=== PATIENT | female | born 1935 | race Caucasian/White ===

== ENCOUNTER 2016-06-17 13:17 | Outpatient (CLI) | payer MEDICARE, OTHER | END 2016-06-17 13:18 | disposition home or self-care (01) | DX: J11.1 Influenza due to unidentified influenza virus with other respiratory manifestations (principal) ==

== ENCOUNTER 2016-08-02 08:00 | Outpatient (CLI) | payer MEDICARE, OTHER | END 2016-08-02 23:59 | DX: Z13.89 Encounter for screening for other disorder (principal) ==

== ENCOUNTER 2016-08-03 16:30 | Outpatient (CLI) | payer MEDICARE, OTHER | END 2016-08-03 16:31 | DX: R41.0 Disorientation, unspecified (principal) ==

== ENCOUNTER 2016-11-15 17:30 | Outpatient (CLI) | payer MEDICARE, OTHER ==
--- NOTE | 2016-11-16 09:56 | CONSULTATION NOTE ---
DATE OF CONSULTATION: 11/16/2016 00:00:00 REQUESTING PROVIDER: Ankit Gonzalez MD. TIME OF VISIT: 10:45 to 11:45 a.m. TOPIC: Initial palliative care consult. Thank you, Dr. Gonzalez, for asking the palliative care consult service to be involved in this patient's care. I am asked to provide support regarding disease transitions and hospice appropriateness. The patient is seen in her [facility] setting, which is [facility]. She has been a resident there [facility]. EXAM LIMITATIONS: The patient is with dementia, is unable to participate in the history. Most of the information is taken from her medical records, nursing staff and daughter, Giselle. BRIEF HISTORY OF PRESENT ILLNESS: This is an 80-year-old woman who actually has been fairly healthy m ost of her life. 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 She [facility] [place] built by her grandfather. She probably was having cognitive decline over se veral years, but had been unable to hide it, but it came to a head back in 08/2015. She was seen by a neurologist, was thought to be her dementia was attributed to multiple mini strokes and has had incr easing functional and cognitive decline over this last year, but more specifically over the last cris ral months. This has been exacerbated by recurrent urinary tract infections that do recur probably on a monthly basis. Most recently she has been treated empirically. She presents with increased confusi on with these, more lethargy and some agitation. She was most recently treated a few weeks ago with C ipro and has not returned to her baseline. I find her quite pleasant. She is able to converse, as far as respond to questions, though, her quest ions are somewhat nonsensical. She does have some drifting delusions in there, putting together going out to lunch, some elaborate descriptions of different people that she has been participating or hav ing conversations with and different trips she has made. In discussing with the daughter, there is so me baseline as far as historical context for that, but certainly not based on reality at this point i n time. She is pleasant, making eye contact, attempting to have a conversation and tries to answer my questions. When asked how she is doing, she says that "I am doing pretty good." She reports she live s just around the corner. Does have some perspective that she is forgetful, but really unable to reca ll any information in the context of history. The patient was originally cared for at [place]. Th ey were unable to meet her needs at that point in time she was also having issues with venous stasis ulcers and cellulitis. This precipitated her admission to [facility]. The daughter's perception is she h as actually settled in there very well. They are very pleased with the staff. The staff are obviously quite fond of her and she does appear to be safely getting her needs met. SYMPTOM BURDEN: She does not present with any distress or discomfort. She has noted a history of back pain, though denies this currently. PAST MEDICAL HISTORY: Includes unspecified dementia, essential primary hypertension, unspecified atri al fibrillation, venous insufficiency, chronic peripheral osteoarthritis and low back pain. MEDICATION ALLERGIES: 1. AMOXICILLIN. 2. CLAVULANIC ACID. 3. LISINOPRIL. 4. POTASSIUM. 5. PROCAINE. CURRENT MEDICATION LIST: INCLUDES. 1. Acetaminophen 650 mg q.6h hours as needed for pain. 2. D-Mannose powder 1 scoop by mouth 3 times a day for prophylactic UTI prevention. 3. House bowel program. 4. Lorazepam 0.5 mg tabs 1/2 tab every 6 hours as needed for agitation. CODE STATUS: THE PATIENT IS CURRENTLY A DO NOT RESUSCITATION AND LIMITED INTERVENTIONS. THIS WAS SIGN ED BY GISELLE GARZON, HER DPOA ON 05/09/[address] ANKTI GONZALEZ, HER PCP. 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 She has lived and participated in this community. She is well loved and liked. MARITAL STATUS: She is . Use of alcohol, rarely in the past. No history of tobacco. FAMILY HISTORY: Includes her father at 64 of cancer. Mother at 64 of a car accident. A sibl ing at 83 of pneumonia and she has 2 children with good health. She does think the sibling did h ave some dementia as well. PERFORMANCE STATUS: This is continued decline, the patient does need quite a bit of cueing. She can j ust a shuffle a few steps. She is maximum assist from sitting to standing, poor bed mobility. She is still currently feeding herself and no choking. They recently got a wheelchair to help with drea khan as she lists to the left. REVIEW OF SYSTEMS: This is a somewhat limited, supplemented by staff. ENT: She does have some slight hearing loss. CARDIOVASCULAR: The patient denies chest pain. RESPIRATORY: No observation of respiratory distress or shortness of breath. GASTROINTESTINAL: Staff reports she is going on a regular basis. Her appetite has returned back to ba seline. GENITOURINARY: She is mostly incontinent of urine. MUSCULOSKELETAL: She is quite stiff and difficult to transfer, has been declining functionally over t he last several weeks. INTEGUMENTARY: No changes. Complains of burning in vaginal area "down there". NEUROLOGIC: Has fluctuating speech patterns and ability to interact with staff. She has had increased weakness. PSYCHIATRIC: No signs or symptoms of depression per staff, the patient herself reports sometimes she is depressed, and that she has sometimes "terrible days" though she is unable to define what that is. Staff perception is she does have intermittent delusions, and unclear if she is having hallucination s. ENDOCRINE: No history of diabetes or thyroid problems. HEMATOLOGIC/IMMUNOLOGIC: Her labs were within normal limits, though last checked in July. Only abnor malities GFR was 69. Glucose was good. She has had intermittent bladder infections as best we know of , last treated a couple weeks ago. PHYSICAL EXAMINATION: GENERAL APPEARANCE: She is bright. Smiles frequently, making eye contact, attempting to engage in the conversation. EYES: Normal on inspection. ENT: Mucous membranes are moist. NECK: Trachea midline, no JVD. RESPIRATORY: Breath sounds are clear. CARDIOVASCULAR: Her temperature is 98.2, pulse 64, slightly irregular, blood pressure 116/72, O2 satu ration 95% on room air. ABDOMEN: Soft. Bowel tones normal, no bladder distention noted. : The patient had complained of having " a pain in the butt" and itching so did want to do a vagina l exam, concerned about candidiasis after her Cipro. The patient does report it is hot and burning, i t is somewhat red and inflamed. There is a small amount of white discharge, no large amount of vagina l discharge. No skin breakdown on her skin. Her coccyx is clear. No signs or symptoms of pressure are a. EXTREMITIES: She does have denuded shiny, red venous stasis bilaterally with just slight pedal edema. Feet are cool to touch. No signs or symptoms of exacerbation or infection. PALLIATIVE CARE DISCUSSION/WHO IS PRESENT: Myself, the patient and nurse practitioner, Deidra Francois. Th e patient is somewhat difficult to engage as far as what she worries about, it was mostly "the pain i n the butt." She reports sometimes feeling sad, denies being unhappy. Has shared a few sentences I co uld not quite make sense out of. Does not appear in any kind of distress. A long conversation both prior and after with daughter, Giselle. She does perceive her mother is windin g down, though the patient is quite content and happy, does not perceive this as quality of life that her mother would have appreciated. That she has never been sick a day in her life. Their goal as a f amily is just to keep her comfortable. If the patient would have recurrent UTI, the decision has been made with the primary care physician and this is revisited and reenforced as far as what she wants f or mom is no further antibiotic intervention. Just focus on keeping her comfortable and to let her go when her time comes. We did discuss the role of comfort measures in this case as far as treating her agitation or if she has pain or distress, often using medications such as morphine to make sure she does not suffer. Given the patient's current level of functioning and her dementia, would only be sta ged at a FAST 6D. We did discuss transitioning at the point that she does get an infection, at that p oint in time with the focus on comfort measures, nontreated infection and multiple comorbidities, we could transition her to the hospice team. She is aware though that she still can be supported with cu rrently the palliative care team and will have the palliative care sumatra opener, as well as a volunteer a ssigned to help improve her quality of life. These were satisfactory as supporting the patient in her current setting. IMPRESSION: This is an 80-year-old woman with a fairly rapid decline over this last year with both fu nctional and cognitive changes. The family's goals are to focus on comfort, improving quality of life and with any perceived life ending event or infection to ALLOW NATURAL AND FOCUS ON COMFORT ME ASURES ONLY. RECOMMENDATIONS/COUNSELING DONE: 1. Vaginal candidiasis: Though this is mild, it does appear to be a source of discomfort for her. Jus t ordered some Monistat external cream to apply b.i.d. for 7 days to see if this will improve. 2. Recurrent urinary tract infections. Goals have been established, to focus on comfort only. She yusuf s have lorazepam for agitation and behavioral disturbances, would recommend adding to the toolbox mor phine 20 per mL 0.25 mL q.4h. hours p.r.n. signs or symptoms of discomfort to allow for any signs of distress to be able to be addressed by staff. At the time the patient was diagnosed with recurrent UT I, the goal would be to transition to hospice. 3. Dementia with behavioral disturbances. Presents as a FAST 6D. Currently, the patient was cooperati ve, though does have some intermittent agitation, delusions and some uncooperativeness. This has not needed to be met with the threshold of medications, though it is available. She does spent quite a bi t of time in her room. Did talk to Giselle as far as how we may help as far as support. Will support he r with medical palliative care sumatra opener with visits, as well as an assigned volunteer. She does like to do crafts and activities. Daughter is coming in November to provide support as well. 4. Advanced care planning. The patient does have a POLST in place. When daughter comes in November we can transition this to comfort measures and more clear on the goals we are planning to meet, when she co mes to visit her to provide more clarity as far as direction to staff. Currently, though, it is the u nderstanding that she would not be transferred to the hospital, focus would be on comfort and transit ion to hospice. This is in conjunction with the primary care goals of care for the patient as well. TIME SPENT: 60 minutes with greater than 50% of this done in counseling with an examination with staf f to get a baseline, clarifying goals and current impressions of the patient's status. The patient's greatest risk is the recurrent UTIs. Certainly is at risk for a sequela of a fall if she were to fall out of the wheelchair and sustain injury. She is currently off her Xarelto and so underlying possibl e risk for stroke. She though has not had any weight loss, continues to eat and drink without difficu lty, is still able to engage in her environment. This is a very uncertain situation as far as expecte d decline. JOB #: [id number] EXT JOB #:[id number]
== END 2016-11-15 17:31 | disposition home or self-care (01) ==
LOC: PC 17:30
PROVIDERS: ATTEND Nurse Practitioner Adult Health
DX: Z51.5 Encounter for palliative care (principal); B37.3 Candidiasis of vulva and vagina; Z87.440 Personal history of urinary (tract) infections; F03.91 Unspecified dementia, unspecified severity, with behavioral disturbance; Z66 Do not resuscitate
CPT/HCPCS: 99306

== ENCOUNTER 2016-12-15 13:10 | Outpatient (CLI) | payer MEDICARE, OTHER ==
--- NOTE | 2016-12-15 16:46 | PROVIDER PROGRESS NOTE ---
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 She has been healthy much of her life but started a gradual cognitive decline over several years. Since about August 2015 her cognitive decline became more pronounced, and she also has a history of recurrent urinary tract infections. The last one was treated in October 2016 with Cipro. She is pleasantly confused, able to express herself articulately at times and to converse fairly normally, but will consistently veer into nonsensical answers and drifting delusions. [facility] nursing reports that she is pleasant and stable behaviorally with the exception of getting upset whenever she is transferred by Leonard, a requirement due to her weight. I spoke at length with her daughter, Sofia, who is currently visiting here from [place]. They had a birthday green party at the [facility] last Monday, and the patient did very well, up until about 1:30 pm. Her daughter notices a pattern that she gets tired and more confused around that time every day. The patient said she feels her life is good here; she is happier than she was at [place] and thinks the caretakers are taking very good care of her. Sofia, the daughter, is also very pleased with the care her mother receives at [facility]. The patient's only complaint is that she can still feel pain on the back of her thighs. Nursing reports she has reddened areas in the skin folds of the groin, and the patient gets relief from a barrier cream when it bothers her. She says she sleeps well, and also has a good appetite, maybe "too good." Social History - Living Situation Living arrangement: [facility]: She was born and raised in [place] and still has a significant network of friends and family nearby. 3 "buddies" visit her regularly at [facility]. Her daughter Sofia (DPOA) lives in [place], and Jayna, the other daughter, lives in [place]. Medications/Allergies - Medications Home Medications: Ambulatory Orders Medication Instructions Recorded Confirmed Acetaminophen [Tylenol] 650 mg PO Q6H PRN 12/15/16 12/15/16 Bisacodyl Supp [Dulcolax Supp] 1 supp HI DAILY PRN MDD if no BM 12/15/16 after 2 days D-Mannose MDD 1 scoop 3 times/day 12/15/16 Lorazepam [Lorazepam] 1 tab PO Q6HR PRN 12/15/16 12/15/16 Magnesium Hydroxide [Milk of 30 ml PO DAILY PRN MDD Give if no 12/15/16 12/15/16 Magnesia] BM after 2 days Senna [Senokot] 1 - 2 tab PO DAILY PRN MDD If no 12/15/16 12/15/16 BM after 2 days - Allergies Allergies/Adverse Reactions: Allergies Allergy/AdvReac Type Severity Reaction Status Date / Time amoxicillin [Amoxicillin] Allergy Unknown Verified 03/31/16 19:29 clavulanic acid Allergy Unknown Verified 03/31/16 19:29 lisinopril Allergy Unknown Verified 03/31/16 19:29 potassium Allergy Unknown Verified 03/31/16 19:29 procaine [Procaine] Allergy Unknown Verified 03/31/16 19:29 Review of Systems - Constitutional Constitutional: denies: Fatigue, Poor appetite - Cardiovascular Cariovascular: denies: Chest pain - Respiratory Respiratory: denies: Cough, SOB at rest - Gastrointestinal Gastrointestinal: reports: Constipation (occasional). denies: Abdominal pain, Change in bowel habits, Nausea - Genitourinary Genitourinary: denies: Dysuria, Urgency - Musculoskeletal Musculoskeletal: denies: Muscle pain, Back pain - Integumentary Integumentary: reports: Rash (groin) - Psychiatric Psychiatric: denies: Depression, Anxiety - Hematologic/Lymphatic Hematologic/Lymphatic: reports: Recurrent infections (UTIs) Physical Examination - Vital Signs Temperature: 97.1 C Pulse Rate: 70 O2 Saturation: 96 Blood Pressure: 115/60 - Physical Exam General Appearance: positive: No acute distress, Alert Eyes Bilateral: positive: EOMI, Conjunctivae nml, No scleral icterus ENT: negative: No signs of dehydration, Dry mucous membranes Neck: positive: Trachea midline Respiratory: positive: Chest non-tender, No respiratory distress, Other (Breath sounds diminished, likely due to slumping forward with kyphosis) Abdomen: positive: Non-tender, No organomegaly, Nml bowel sounds, No distention Skin: positive: No symptoms Extremities: positive: Nml appearance, Pedal edema (mild) Neurologic/Psychiatric: positive: Motor nml, Other (some drifting delusions and tangential responses) Comments/Other: Stable weight, around ~175 lbs since Jun 2016. Most recent weight is 176.7 lbs on 12/05/16 Palliative Care - POLST Patient has POLST: Yes POLST Status: DNR, Limited Interventions (Use antibiotics if life can be prolonged) Pain: Pain improved (Vaginal itch improved, but still complains of pain in posterior thighs) Drowsiness: None Nausea: None Anxiety: Mild (1-3) (related to Leonard lifting) Dyspnea: None Anorexia: None Insomnia: Sleeps well Constipation: Comment (Occasionally. Follow facility bowel protocol.) Feelings of wellbeing/Perceived Quality of Life: Improved (Is satisfied living at [facility]) Performance Status: 1. Previous level of function prior to this episode [Decline over past year, accelerated over past several months]. 2. Current level of functioning [Stable since the October Palliative Care visit]. 3. Palliative Care Performance Status [50%]. - Palliative Care Discussion: 1. Surrogate decision maker [Sofia Snell, daughter in [place]. [phone] mobile]. 2. Patient/Family understanding of the illness [Daughter understands that her mother's dementia is progressing and her functionality is decreasing.]. 3. Most important goals [Comfort and quality of life. The family had a green party last week to celebrate her birthday with numerous family and long time friends, and they want to continue to have her involved in as many activities and family gatherings as possible]. 4. Patient/Family concerns [That her mother enjoys her life as much as possible , that she continues remaind connected to family and friends. She would also like to increase her social contacts so that she is not lonely or bored. She likes the idea of a visiting volunteer, and [employer] visitations too.] 5. Family conference [Spoke with DPOA daughter Sofia on phone before and after visiting the patient. Sofia is on [facility] this week, and visits her mother reqularly. Her sister, Jayna, lives in [place]. The focus of care continues to be focused on comfort and quality of life, but there is ambivalence about antibiotics usage, not wanting to treat recurrent UTIs but wanting to treat "more serious illness." We will continue to revisit this with the DPOA as need arises and the situation dictates. Impression and Recommendations - Palliative Care Impression: This is an 81 year-old woman who has declined over the past year both functionally and cognitively. She has been stable over the last month and she is happy in her current living situation and likes the care she receives at [facility]. Recommendations/Counseling Done: 1. Groin rash: Start Nystatin powder BID until cleared and then as needed. Continue barrier cream as needed. 2. Recurrent UTIs: No infection at present. 3. Dementia with behavioral disturbances: Presents as a FAST 6D. Agitation around use of Leonard lift. Sofia, daughter is aware of this. She has has a lot of family/friend activities in the past week and is seeing an increase in friends visiting. We will support with [employer] visits and volunteer visits after December 27. 4. Advanced care planning: Will continue to revisit goals with decline and monitor for criteria for transitioning to hospice. Time Spent: 30 minutes with greater than 50% done in counseling and coordination of care with staff and follow up with daughter and providing anticipatory guidance.
== END 2016-12-15 13:11 | disposition home or self-care (01) ==
LOC: PC 13:10
PROVIDERS: ATTEND Nurse Practitioner
DX: Z51.5 Encounter for palliative care (principal); R21 Rash and other nonspecific skin eruption; N39.0 Urinary tract infection, site not specified; F03.91 Unspecified dementia, unspecified severity, with behavioral disturbance; M79.652 Pain in left thigh; M79.651 Pain in right thigh; K59.00 Constipation, unspecified; Z66 Do not resuscitate
CPT/HCPCS: 99309

== ENCOUNTER 2017-03-02 10:30 | Outpatient (CLI) | payer MEDICARE, OTHER ==
--- NOTE | 2017-03-02 15:39 | CONSULTATION NOTE ---
Palliative Care Follow Up - Referral Referring Provider: Dr Gonzalez Time of Visit: 10:30 Referral setting: [facility] ([facility]) - Information Sources Records reviewed: RN notes reviewed, Previous records reviewed History/Review of Systems obtained from: Patient, Family, Nursing Exam limitations: Clinical condition (advanced dementia, delusions) - History of Present Illness Update Brief HPI Update: This is a pleasantly confused 81-year-old woman with dementia who has had a gradual cognitive decline for the past several years, and a more precipitous decline cognitively and functionally since August 2015. She has a history of recurrent UTIs; the most recent infection was in October 2016 and was treated with ciprofloxacin. Today her daughter Jayna is with her, and will be attending a family conference at [facility] following my visit. Her mother is pleasantly confused during the assessment, with delusional thinking that today is centered on a dog she knows from her past. I had a follow up telephone call with the daughter, and learned that after this visit, her mother became agitated and upset once her daughter and I had left the room. Once the daughter returned to the patient's room, it took the daughter awhile to calm the patient back down. Apparently she was perseverating about the dog delusion. Staff also reports a recent aggressive behavior this week where she reached out as if to grab the throat of one of her caretakers; it may have been a startle reflex from being woken up. Staff and daughter report that she experiences delusions and mild hallucinations regularly. Overall, Jayna reports her mother has stabilized here and is doing much better at [facility] than she had been in assisted living (at [facility]). The patient also reports being happy here. She complains of pain in her L buttocks, near the sacroiliac joint and is repeatedly attempting to reposition herself in the wheelchair to relieve the pressure and discomfort. She reports sleeping well and has a good appetite. Social History - Living Situation Living arrangement: long-term Living Situation: With caregiver(s) (One daughter, Jayna, lives in [place] and visits every two weeks or so. The other daughter, Sofia, is in [place]) Medications/Allergies - Medications Home Medications: Ambulatory Orders Medication Instructions Recorded Confirmed Acetaminophen [Tylenol] 650 mg PO Q6H PRN 12/15/16 03/02/17 Bisacodyl Supp [Dulcolax Supp] 1 supp SD DAILY PRN MDD if no BM 12/15/16 after 2 days D-Mannose MDD 1 scoop 3 times/day 12/15/16 Lorazepam [Lorazepam] 1 tab PO Q6HR PRN 12/15/16 03/02/17 Magnesium Hydroxide [Milk of 30 ml PO DAILY PRN MDD Give if no 12/15/16 03/02/17 Magnesia] BM after 2 days Senna [Senokot] 1 - 2 tab PO DAILY PRN MDD If no 12/15/16 03/02/17 BM after 2 days Acetaminophen 650 mg PO BID 03/02/17 03/02/17 - Allergies Allergies/Adverse Reactions: Allergies Allergy/AdvReac Type Severity Reaction Status Date / Time amoxicillin [Amoxicillin] Allergy Unknown Verified 03/31/16 19:29 clavulanic acid Allergy Unknown Verified 03/31/16 19:29 lisinopril Allergy Unknown Verified 03/31/16 19:29 potassium Allergy Unknown Verified 03/31/16 19:29 procaine [Procaine] Allergy Unknown Verified 03/31/16 19:29 Review of Systems - Constitutional Constitutional: reports: Weakness, Other (Stable weight since Jun 2016, ranging 171-176. Most recent is 173.1 lbs 02/17/17.) - Ears, Nose & Throat Ears, Nose & Throat: reports: Hearing loss - Cardiovascular Cardiovascular: reports: Irregular heart rate, Decr. exercise tolerance. denies : Chest pain, Edema - Respiratory Respiratory: denies: Cough - Gastrointestinal Gastrointestinal: denies: Constipation, Diarrhea, Change in bowel habits - Genitourinary Genitourinary: reports: Incontinence. denies: Dysuria - Musculoskeletal Musculoskeletal: reports: Muscle pain (Pain in L hip/buttocks near SIJ.), Limited range of motion - Neurological Neurological: reports: General weakness, Memory problems - Psychiatric Psychiatric: reports: Delusions, Hallucinations, Behavior disturbances - Hematologic/Lymphatic Hematologic/Lymphatic: denies: Recurrent infections (No UTIs since October 2016.) Physical Exam - Vital Signs Temperature: 98.2 F Pulse Rate: 66 O2 Saturation: 98 Blood Pressure: 98/60 - Physical Exam General Appearance: positive: No acute distress, Alert Eyes Bilateral: positive: EOMI, No lid inflammation, Conjunctivae nml, No scleral icterus ENT: positive: No signs of dehydration Neck: positive: Thyroid nml, No JVD, Trachea midline Cardiovascular: positive: No murmur, Irregular Respiratory: positive: Chest non-tender, No respiratory distress, Breath sounds nml, Diminished in bases (in RLL, otherwise OK). negative: Wheezes, Rales, Rhonchi Skin: positive: No symptoms Neurologic/Psychiatric: positive: Motor nml, Sensation nml, Disoriented to place , Disoriented to time, Weakness Palliative Care - POLST Patient has POLST: Yes POLST Status: DNR, Limited Interventions Pain: Location (L hip, sacroiliac joint) Tiredness/Fatigue: Mild (1-3) Drowsiness/Sedation: None Nausea: None Depression: None Anxiety: Mild (1-3) Dyspnea: None Anorexia: None Sleep: Sleeps well Constipation: No Feelings of wellbeing/Perceived Quality of Life: Good Performance Status: Current level of functionin-2 person assist for transfers (patient refuses the Leonard lift), requires help with all ADLs, wheelchair bound, increasing delusions and hallucinations. Palliative Care Performance Status: 50% - Palliative Care Discussion: Who is present: The patient, her daughter Jayna, myself Surrogate decision maker: Sofia Snell, daughter in [place], mobile [phone] Jayna Mathew, daughter in [place] mobile [phone] Most important goals: Maintaining her comfort and quality of life. Patient/family concerns: Pain control and comfort for the patient given her immobility and wheelchair bound state. Family Conference: It took place today, between daughter Jayna and the [facility] staff. Impression and Recommendations - Palliative Care Impression: This is a pleasant 81-year-old woman with advancing dementia with delusional thinking. She has declining functionality and cognition over the past year, but has stabilized since being at [facility], not having had a UTI since October. She does not currently meet the criteria for Hospice. Recommendations/Counseling Done: 1. Dementia with behavior disturbances: Continued delusions and hallucinations. If delusions and behaviors intensify, consider adding seroquel or risperidone -- consult with PCP, Dr Gonzalez and follow up with daughters. 2. Low back pain: Left side SI joint. Schedule Tylenol 650mg BID routine. Follow up next week to monitor for effectiveness. Recommend Restorative sessions to increase her mobility and get her body out of its static posture. Also getting her out of her wheelchair and some point(s) during the day and on to her bed to relieve pressure on her back and buttocks would be beneficial. Due to difficulties and challenges with transfers, and her own resistance, this might prove impractical. 3. Advanced care planning: POLST in place, DNR and limited interventions. Will continue to revisit goals as her declining functionality dictates, and transition to Hospice when appropriate. Time Spent: 45 minutes with greater than 50% done in evaluating, counselling daughter and coordination of care with staff and providing anticipatory guidance.
== END 2017-03-02 10:31 | disposition home or self-care (01) ==
LOC: PC 10:30
PROVIDERS: ATTEND Nurse Practitioner
DX: Z51.5 Encounter for palliative care (principal); F03.91 Unspecified dementia, unspecified severity, with behavioral disturbance; M54.5 Low back pain; Z87.440 Personal history of urinary (tract) infections; R53.1 Weakness; Z66 Do not resuscitate; Z99.3 Dependence on wheelchair
CPT/HCPCS: 99310

== ENCOUNTER 2017-06-22 13:30 | Outpatient (CLI) | payer MEDICARE, OTHER | END 2017-06-22 13:31 | disposition home or self-care (01) | LOC: LAB.R 13:30 | PROVIDERS: ATTEND Nurse Practitioner Adult Health | DX: L03.116 Cellulitis of left lower limb (principal) | CPT/HCPCS: 87070; 87077; 87205 ==

== ENCOUNTER 2017-06-22 18:52 | Outpatient (CLI) | payer MEDICARE, OTHER ==
--- NOTE | 2017-06-22 19:23 | CONSULTATION NOTE ---
Palliative Care Follow Up - Referral Referring Provider: Dr. 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 She at this point in time is a Leonard lift for transfers, does present with contracted lower extremities including hips and knees. Her cognitive decline has continued as well, her conversation is mostly word salad, is unclear if she recognizes her family. She does have intermittent episodes of agitation. What is of most concern most recently is she has had the development of a wound over the last week. It started out as a swelling hard red and tender to touch. Has now moved to the surface though it has a thin film over it. Is a's on the left issue him, with a eschar of 1 x 1.3 cm, the whole open area with some surrounding thin granulating tissue total is 2.4 cm x 2.5 cm and then at 6:00 actually distal from the wound there is a 3 x 4 cm palpable mass underneath the surface. Which is very tender on palpation to patient. In the context of wound care. Patient has scant drainage, after cleaning it actually the granulating tissue is quite dry, though did attempt to take a wound culture. Does appear quite tender and angry, does not act like a pressure ulcer though certainly is in the area where she sits. Her daughter Jayna is present at the time of visit. This wound does seem a source of significant discomfort for her. The other presenting symptom this week, had been concerned about her right hip being "dislocated". 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 And her hip is protruding out to the right. Because of her contractures is unable to straighten but does not seem to cause her any pain or discomfort, nor have they noticed any difficulty or increase in pain with transfers in the Leonard Social History - Living Situation Living arrangement: senior living Support System: Patient is quite pleasant in demeanor, staff do enjoy interacting with her, her daughter from [place] [facility] does visit on a regular basis, caffeine monthly. She also has a daughter Sofia in [place], and visits as well on an intermittent basis. Medications/Allergies - Medications Home Medications: Ambulatory Orders Medication Instructions Recorded Confirmed Acetaminophen [Tylenol] 650 mg PO Q6H PRN 12/15/16 03/02/17 Bisacodyl Supp [Dulcolax Supp] 1 supp CA DAILY PRN MDD if no BM 12/15/16 after 2 days D-Mannose MDD 1 scoop 3 times/day 12/15/16 Magnesium Hydroxide [Milk of 30 ml PO DAILY PRN MDD Give if no 12/15/16 06/22/17 Magnesia] BM after 2 days Senna [Senokot] 1 - 2 tab PO DAILY PRN MDD If no 12/15/16 06/22/17 BM after 2 days Acetaminophen 650 mg PO BID 03/02/17 03/02/17 - Allergies Allergies/Adverse Reactions: Allergies Allergy/AdvReac Type Severity Reaction Status Date / Time amoxicillin [Amoxicillin] Allergy Unknown Verified 03/31/16 19:29 clavulanic acid Allergy Unknown Verified 03/31/16 19:29 lisinopril Allergy Unknown Verified 03/31/16 19:29 potassium Allergy Unknown Verified 03/31/16 19:29 procaine [Procaine] Allergy Unknown Verified 03/31/16 19:29 Review of Systems - Constitutional Constitutional: reports: Fatigue, Weight stable (172) - Ears, Nose & Throat Ears, Nose & Throat: reports: Hearing loss - Gastrointestinal Gastrointestinal: reports: Good appetite (usually) - Genitourinary Genitourinary: reports: Incontinence (at times can ask) - Musculoskeletal Musculoskeletal: reports: Limited range of motion (patient with hip/knee/ shoulder contractures), Transfer issues (requires leonard lift) - Integumentary Integumentary: reports: Other (worsening wound over week; started as red swelling "boil") - Neurological Neurological: reports: Memory problems - Other Findings Other Findings: Limited ROS with dementia Physical Exam - Vital Signs Temperature: 97.7 C Pulse Rate: 53 Respiratory Rate: 18 O2 Saturation: 95 (ra @ rest) Blood Pressure: 122/68 - Physical Exam General Appearance: positive: Moderate distress, Anxious (working with wound) Eyes Bilateral: positive: Normal inspection ENT: positive: No signs of dehydration Neck: positive: Trachea midline Cardiovascular: positive: Regular rate & rhythm Respiratory: positive: Breath sounds nml Abdomen: positive: Soft, Nml bowel sounds Skin: positive: Pallor (see HPI), Wound Extremities: positive: No pedal edema, Other (concern over right hip "dislocation"; hip is indeed) Neurologic/Psychiatric: positive: Disoriented to place, Disoriented to time, Weakness, Unintelligible speech (word salad) Palliative Care - POLST Patient has POLST: Yes POLST Status: DNR, Selective Treatment Pain: Pain worsening, Location (left buttock wound area; tender sit on) Tiredness/Fatigue: Comment (staff note increased in tiredness/fatigue-wanting to be up less) Performance Status: Patient does need some assistance with feeding as far as meals set up. She is dependent for all other ADLs. She still does transfer time sometimes to the bedpan, she is a full Leonard lift so not so much the commode anymore. - Palliative Care Discussion: Daughter Jayna at present at visit. Goal is to focus on comfort. It is obvious that she has somewhat uncomfortable with this left hip wound. At this point in time decision was made to follow-up with primary care for further treatment for comfort. Daughter is able to see patients continued decline, particularly in the context of communication, and functionality. She has had intermittent UTIs for the last one was this last summer, she is being maintained on d-mannose and that does appear to be providing some support Impression and Recommendations - Palliative Care Impression: This is a pleasant 81-year-old woman with progressive dementia, she now presents with an acute problem with the left hip wound causing increased distress. Given the symptoms of redness, tenderness, and probable cellulitis. Will pursue treatment with the goal for relief of discomfort. Recommendations/Counseling Done: 1. Left hip cellulits. Unclear underlying etiology, has been complaining of tender spot with sitting for several months now, is palpable tender mass under the skin as well as now open area. Consult with PCP, will order antibiotics. This is in agreement with Jayna's goals for her mom for attempting to treat her underlying discomfort. Will schedule Acetaminophen 650 mg BID as patient unable to ask for medications, for one week. Wound culture obtained, though concerned as not much drainage. Will have change dressing with foam every 2 days, monitor response to AB. 2. Dementia with behavioral disturbances. Patient pleasant and cooperative during visit, does present with word salad and difficulty communicating. Does have intermittent periods of agitation, this was not addressed on this visit 3. Advanced care planning. ANURADHA ST in place, goals continue to be focus on comfort, at this point in time this is an acute on possible chronic problem, will address with intervention. Continue to monitor and patient's ongoing decline, transition to hospice when appropriate. Time Spent: 30 minutes with greater than 50% of this done in coordination of care with staff regarding wound care, PCP for acute treatment, and anticipatory guidance with daughter
== END 2017-06-22 18:53 | disposition home or self-care (01) ==
LOC: PC 18:52
PROVIDERS: ATTEND Nurse Practitioner Adult Health
DX: Z51.5 Encounter for palliative care (principal); I69.919 Unspecified symptoms and signs involving cognitive functions following unspecified cerebrovascular disease; F01.50 Vascular dementia, unspecified severity, without behavioral disturbance, psychotic disturbance, mood disturbance, and anxiety; L89.329 Pressure ulcer of left buttock, unspecified stage; L03.317 Cellulitis of buttock; H91.90 Unspecified hearing loss, unspecified ear; R32 Unspecified urinary incontinence; R53.83 Other fatigue; Z66 Do not resuscitate; Z79.899 Other long term (current) drug therapy
CPT/HCPCS: 99309

== ENCOUNTER 2017-07-12 10:30 | Outpatient (CLI) | payer MEDICARE, OTHER ==
--- NOTE | 2017-07-12 16:08 | CONSULTATION NOTE ---
Palliative Care Follow Up - Referral Referring Provider: Dr. 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 She was seen on 06/22 regarding the development of a wound on her left buttock quite close to her perirectal area. This was cultured and actually grew out four organisms. She was treated with both Levaquin and Bactrim, which was completed on 07/06. It has had some improvement, the surface area, of moist granulation tissue, is about the same 1.2 x 1.3 cm, with the area surrounding a dull pink, less erythema though extended in measurements 3.5 x 3.0 cm. There is still a palpable mass of 3 x 3 cm at 6 o 'clock to the wound with tenderness and discomfort to patient on palpation. I suspect if she were sitting upright it would be more under the wound surface. The drainage on dressing removed after two days was scant and dull yellow/dried. Unable to express any fluid on exam.Patient continues to presents somewhat as a failure to thrive, ongoing weight loss. Her weight on 07/09 was 156 despite twice a day medipass, down from last week 06/29 160; and previous month 06/02 172. Staff reports she is often not interested in her food, but will not allow assistance with this. I did talk to her daughter Jayna she to notice that she had decreased intake was more lethargic and less interactive, and seemed more fragile to her as well. We did discuss in the context of antibiotics though she has just completed those, she may feel better over the next week related to her appetite. Social History - Living Situation Living arrangement: detention Support System: Patient has 2 daughters oversee her care, Jayna from [place] visits every few weeks. Medications/Allergies - Medications Home Medications: Ambulatory Orders Medication Instructions Recorded Confirmed Acetaminophen [Tylenol] 650 mg PO Q6H PRN 12/15/16 03/02/17 Bisacodyl Supp [Dulcolax Supp] 1 supp MA DAILY PRN MDD if no BM 12/15/16 after 2 days D-Mannose MDD 1 scoop 3 times/day 12/15/16 Magnesium Hydroxide [Milk of 30 ml PO DAILY PRN MDD Give if no 12/15/16 06/22/17 Magnesia] BM after 2 days Senna [Senokot] 1 - 2 tab PO DAILY PRN MDD If no 12/15/16 07/14/17 BM after 2 days Acetaminophen 650 mg PO BID 03/02/17 07/14/17 Med Pass 90 ml PO BID 07/14/17 - Allergies Allergies/Adverse Reactions: Allergies Allergy/AdvReac Type Severity Reaction Status Date / Time amoxicillin [Amoxicillin] Allergy Unknown Verified 03/31/16 19:29 clavulanic acid Allergy Unknown Verified 03/31/16 19:29 lisinopril Allergy Unknown Verified 03/31/16 19:29 potassium Allergy Unknown Verified 03/31/16 19:29 procaine [Procaine] Allergy Unknown Verified 03/31/16 19:29 Review of Systems - Other Findings Other Findings: Per staff patient continues to sleep quite a bit, she fluctuates as far as her oral intake. She is uncomfortable with her Leonard lifts with pressure on that area, but otherwise it does not appear painful other than with dressing change. They note continued decline from their observations as well. Physical Exam - Vital Signs Temperature: 97.9 C Pulse Rate: 57 Respiratory Rate: 18 O2 Saturation: 96 (ra @rest) Blood Pressure: 92/62 - Physical Exam General Appearance: positive: Mild distress (with dressing change only) Eyes Bilateral: positive: Conjunctivae nml, No scleral icterus ENT: negative: Oral lesions, Dry mucous membranes Neck: positive: No JVD, Trachea midline Cardiovascular: positive: Regular rate & rhythm Respiratory: positive: Breath sounds nml Abdomen: positive: Non-tender, Soft, Nml bowel sounds Skin: positive: Wound (noted in HPI), Pressure wound (Has prominent hip bones from weight loss; pink with pressure) Extremities: positive: No pedal edema Neurologic/Psychiatric: positive: Disoriented to person, Disoriented to place, Disoriented to time, Other (Presents with word salad, does attempt to interact, had just returned from breakfast and falls asleep quite easily.) Palliative Care - POLST Patient has POLST: Yes POLST Status: DNR, Selective Treatment Pain: Pain unchanged, Location (with pressure on buttock wound) Constipation: No Performance Status: Patient dependent for all ADLs, is spending more time in bed secondary to fatigue. Does feed herself with encouragement, but needing more assistance and cueing from staff. I would put her at a PPS of 40% - Palliative Care Discussion: Follow-up call to Jayna patient's daughter. She T is noticed some decline more so even since her visit a couple weeks ago. She does try and come every couple weeks and engage her in some kind of activity, she reports she is less interested in this. We did discuss the natural course of the disease, which is sleeping more, less intake, more nutritional problems, as well as the sequela of consequences from being in bed more often. She is clear they do not want to prolong her suffering, but wanted to focus on her comfort. Results - Lab Results Lab results reviewed: Yes Impression and Recommendations - Palliative Care Impression: This is a pleasant 81-year-old woman with progressive dementia, she presents with a wound on her left buttock/ischial Area. She has completed antibiotics for this, does show some improvement with decreasing erythema, size of palpable most likely abscess under the skin, and drainage. It is probably aggravated by her pressure noted when sitting in wheelchair, she does have a pressure relief cushion there. She continues to fluctuate as far as cognition, but is sleeping more, and continues to have slow decline Recommendations/Counseling Done: 1. Left buttock wound, unclear underlying etiology, most likely combination of abscess and pressure. She has some improvement with antibiotics, though has not resolved. We will continue to observe, if worsens or presents with increased pain and discomfort to patient, will defer to PCP for possible I & D. Will extend scheduled APAP for one more week as patient unable to ask for medication for discomfort. Ordered JACY for bed. 2. Anorexia, most likely multifactorial in origin. Did discuss with daughter we do not have great interventions as far as pharmacologic, we could initiate mirtazapine, she is hesitant to look at anything that is going to interfere with a natural process. We did discuss we would revisit this after patient has been off antibiotics for couple weeks, and see patient's response as far as her wound 3. Dementia with behavioral disturbances. Patient has intermittent periods of agitation, these have not increased or become problematic. Will continue to monitor. She does present with ongoing decline with decreased intake, increased lethargy, and weight loss. Palliative care will continue to monitor until the appropriate to transition to hospice Time Spent: 30 minutes with greater than 50% of this done and coordination of care with staff regarding wound care and follow-up for symptom management.
== END 2017-07-12 10:31 | disposition home or self-care (01) ==
LOC: PC 10:30
PROVIDERS: ATTEND Nurse Practitioner Adult Health
DX: Z51.5 Encounter for palliative care (principal); L89.329 Pressure ulcer of left buttock, unspecified stage; R63.0 Anorexia; F01.51 Vascular dementia, unspecified severity, with behavioral disturbance; G47.10 Hypersomnia, unspecified; R53.83 Other fatigue; R62.7 Adult failure to thrive; R63.4 Abnormal weight loss; Z87.440 Personal history of urinary (tract) infections; Z86.73 Personal history of transient ischemic attack (TIA), and cerebral infarction without residual deficits; Z66 Do not resuscitate
CPT/HCPCS: 99309

== ENCOUNTER 2017-09-27 14:45 | Outpatient (CLI) | payer MEDICARE, OTHER ==
--- NOTE | 2017-09-27 16:16 | CONSULTATION NOTE ---
Palliative Care Follow Up - Referral Referring Provider: Dr Gonzalez Time of Visit: 09/27/2017. 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 -Medical history: Advanced dementia, HTN, atrial fibrillation, venous insufficiency, chronic peripheral osteoarthritis, chronic low back pain, history of urinary recurrent tract infections. -She continues to slowly decline functionally and cognitively, but remains stable without behaviors per nursing report. -She does cry when the Leonard lift is used for transfers between wheelchair and bed. This often occurs at nursing shift change (2:30 to 3 PM) when they are putting her to bed for the afternoon prior to dinner. -Otherwise no new concerns or developments. -The left buttock which was cultured and proved positive with 4 organisms and was treated with Levaquin and Bactrim. -It has been nearly resolved, completely closed with healthy looking pink skin around it and a soft movable nodule palpable under the skin. -The nodule and surrounding skin is not tender to palpation and the patient reports no pain or discomfort with it. -Nursing continues to maintain it with dressing. -D-Mannose was initiated as a prophylactic; no UTIs since then. -Left voicemail for daughter Jayna. Social History - Living Situation Living arrangement: residential ([facility]) Living Situation: With caregiver(s) Support System: Patient has two daughter who oversee her care. Jayna lives in [place], Sofia lives in [place]. The patient is a long-time resident of [place]. Medications/Allergies - Medications Home Medications: Ambulatory Orders Medication Instructions Recorded Confirmed Acetaminophen [Tylenol] 650 mg PO Q6H PRN 12/15/16 09/27/17 Bisacodyl Supp [Dulcolax Supp] 1 supp SD DAILY PRN MDD if no BM 12/15/16 after 2 days D-Mannose MDD 1 scoop 3 times/day 12/15/16 Magnesium Hydroxide [Milk of 30 ml PO DAILY PRN MDD Give if no 12/15/16 09/27/17 Magnesia] BM after 2 days Senna [Senokot] 1 - 2 tab PO DAILY PRN MDD If no 12/15/16 09/27/17 BM after 2 days Acetaminophen 650 mg PO BID 03/02/17 09/27/17 Med Pass 90 ml PO BID 07/14/17 09/27/17 - Allergies Allergies/Adverse Reactions: Allergies Allergy/AdvReac Type Severity Reaction Status Date / Time amoxicillin [Amoxicillin] Allergy Unknown Verified 03/31/16 19:29 clavulanic acid Allergy Unknown Verified 03/31/16 19:29 lisinopril Allergy Unknown Verified 03/31/16 19:29 potassium Allergy Unknown Verified 03/31/16 19:29 procaine [Procaine] Allergy Unknown Verified 03/31/16 19:29 Review of Systems - Constitutional Constitutional: reports: Fatigue, Weight loss (7% loss since 04/29/17. 158 lbs . 161.6 lbs 08/04/17. 156.9 bs 07/09. 160 lbs 06/29/17. 172 lbs 06/02/17. 171.4 lbs 04/29/17. 168.8 lbs 04/05/17. 169.3 lbs 03/04/17.). denies: Fever - Cardiovascular Cardiovascular: reports: Chest pain - Respiratory Respiratory: denies: SOB at rest, SOB with exertion - Gastrointestinal Gastrointestinal: reports: Constipation - Musculoskeletal Musculoskeletal: denies: Back pain - Integumentary Integumentary: reports: Other (Denies pain from L buttock resolving wound) - Neurological Neurological: reports: Memory problems Physical Exam - Vital Signs Temperature: 97.1 F Pulse Rate: 62 O2 Saturation: 95 (room air) Blood Pressure: 107/64 - Physical Exam General Appearance: positive: No acute distress, Alert Eyes Bilateral: positive: EOMI, Conjunctivae nml, No scleral icterus ENT: positive: No signs of dehydration. negative: Oral lesions Neck: positive: No JVD, Trachea midline Cardiovascular: positive: Regular rate & rhythm Respiratory: positive: Breath sounds nml Skin: positive: No symptoms, Wound (L buttock on ischial tuberosity, pink skin, closed and healing well, non-tender.) Extremities: negative: Pedal edema Neurologic/Psychiatric: positive: Disoriented to person, Disoriented to place, Disoriented to time, Unintelligible speech Palliative Care - POLST Patient has POLST: Yes POLST Status: DNR, Selective Treatment Pain: No pain Impression and Recommendations - Palliative Care Impression: The patient is stable within the context of progressive decline. She appears comfortable with the exception of anxiety around transfers with Leonard life. D- Mannose has been started as E coli UTI prophylactic. Palliative care will continue to provide oversight and will transition to Hospice when appropriate. Recommendations/Counseling Done: Left buttock wound: Closed and resolving after antibiotic treatment, healing as expected, pink new skin, non-tender mobile nodule remains, patient denies pain or discomfort. Nursing is continuing to cover it. Anorexia: No improvement. 7% loss since 04/29/17. 158 lbs 08/1017 is the most recent weight, 3.6 lb weight loss from July. See ROS for more details. Continue with MedPass. In previous discussion with TRAIN EXAMINER when mirtazapine was suggested, daughter was not sure if she wanted to interfere with the natural process. I have left a message for daughter. Dementia with behavior disturbances: Patient and stable, the only behaviors are agitation and crying with transfers by Leonard lift, which coincides with shift change. These have not increased or been a problem. Advanced care planning: POLST is DNR and selective. Left voicemail for daughter Jayna to update her. Follow up every 4-6 weeks and as needed. Time Spent: 25 minutes were spent with more than 50% of the time spent on counseling, education, and coordination of care.
== END 2017-09-27 14:46 | disposition home or self-care (01) ==
LOC: PC 14:45
PROVIDERS: ATTEND Nurse Practitioner
DX: Z51.5 Encounter for palliative care (principal); I69.919 Unspecified symptoms and signs involving cognitive functions following unspecified cerebrovascular disease; F01.51 Vascular dementia, unspecified severity, with behavioral disturbance; R63.0 Anorexia; F41.9 Anxiety disorder, unspecified; Z87.440 Personal history of urinary (tract) infections; Z66 Do not resuscitate
CPT/HCPCS: 99309

== ENCOUNTER 2017-11-26 14:45 | Outpatient (CLI) | payer MEDICARE, OTHER ==
[2017-11-26 15:37] LABS: BASOPHILS # (AUTO) 0.1 10^3/uL (0.0-0.1); BASOPHILS % (AUTO) 0.8 %; EOSINOPHILS # (AUTO) 0.2 10^3/uL (0.0-0.7); EOSINOPHILS % (AUTO) 2.3 %; HGB - HEMOGLOBIN 13.2 g/dL (12.0-16.0); LYMPHOCYTES # (AUTO) 1.3 10^3/uL (1.5-3.5); LYMPHOCYTES % (AUTO) 17.1 %; MEAN CORPUSCULAR HEMOGLOBIN 32.5 pg (27.0-31.0); MEAN CORPUSCULAR HGB CONC 33.1 g/dL (32.0-36.0); MEAN PLATELET VOLUME 8.5 fL (7.9-10.8); MONOCYTES # (AUTO) 0.7 10^3/uL (0.0-1.0); MONOCYTES % (AUTO) 9.1 %; NEUTROPHILS # (AUTO) 5.4 10^3/uL (1.5-6.6); NEUTROPHILS % (AUTO) 70.7 %; PLT - PLATELET COUNT 197 10^3/uL (130-450); RED BLOOD COUNT 4.07 10^6/uL (4.20-5.40); RED CELL DISTRIBUTION WIDTH 13.4 % (12.0-15.0); WHITE BLOOD COUNT 7.6 x10^3/uL (4.8-10.8)
[2017-11-26 15:49] LABS: ALBUMIN 2.8 g/dL (3.2-5.5); ALBUMIN/GLOBULIN RATIO 0.7 (1.0-2.2); BILIRUBIN,TOTAL 0.5 mg/dL (0.2-1.0); CALCIUM 8.5 mg/dL (8.5-10.3); CREATININE 0.7 mg/dL (0.4-1.0); TOTAL PROTEIN 6.7 g/dL (6.7-8.2)
== END 2017-11-26 14:46 ==
LOC: LAB.R 14:45
DX: I87.2 Venous insufficiency (chronic) (peripheral) (principal)
CPT/HCPCS: 80053; 85025

== ENCOUNTER 2017-12-11 18:50 | Outpatient (CLI) | payer MEDICARE, OTHER | END 2017-12-11 18:51 | disposition critical access hospital (66) | LOC: EMS 18:50 | PROVIDERS: ATTEND Surgery | DX: M79.89 Other specified soft tissue disorders (principal) | CPT/HCPCS: A0425; A0429 ==

== ENCOUNTER 2017-12-11 18:57 | Emergency (ER) | payer MEDICARE, OTHER ==
--- NOTE | 2017-12-11 19:35 | ED Physician Documentation ---
PD HPI SKIN - Stated complaint Stated Complaint: RIGHT LOWER EXT SWELLING - Chief complaint Chief Complaint: General - History obtained from History obtained from: Patient, EMS, Caregiver - History of Present Illness Timing - onset: How many days ago (few - her daughter said she visited her several days ago and legs seemed fine.) Timing - duration: Days Timing - details: Gradual onset, Still present Location: RLE (right calf swelling and redness/warmth) Quality / character: Discolored, Swelling (right lower leg) Associated symptoms: No: Dyspnea, N/V/D Similar symptoms before: Has not had sx before Review of Systems Unable to obtain: Dementia, Other (answers from daughter) Cardiac: denies: Chest pain / pressure Respiratory: denies: Dyspnea, Cough GI: denies: Abdominal Pain, Vomiting Neurologic: denies: Headache, Head injury PD PAST MEDICAL HISTORY - Past Medical History Cardiovascular: Hypertension, Atrial fibrillation, Other Respiratory: None Neuro: Dementia Endocrine/Autoimmune: None GI: None : None HEENT: Chronic hearing loss Psych: None Musculoskeletal: Osteoarthritis, Chronic back pain Derm: None - Past Surgical History Past Surgical History: Yes /VP HOME HEALTH: Hysterectomy HEENT: Cataracts, Tonsil/Adenoidectomy - Present Medications Home Medications: Ambulatory Orders Medication Instructions Recorded Confirmed Acetaminophen [Tylenol] 650 mg PO Q6H PRN 12/15/16 09/27/17 Bisacodyl Supp [Dulcolax Supp] 1 supp LA DAILY PRN MDD if no BM 12/15/16 after 2 days D-Mannose MDD 1 scoop 3 times/day 12/15/16 Magnesium Hydroxide [Milk of 30 ml PO DAILY PRN MDD Give if no 12/15/16 09/27/17 Magnesia] BM after 2 days Senna [Senokot] 1 - 2 tab PO DAILY PRN MDD If no 12/15/16 09/27/17 BM after 2 days Acetaminophen 650 mg PO BID 03/02/17 09/27/17 Med Pass 90 ml PO BID 07/14/17 09/27/17 Rivaroxaban [Xarelto] 15 mg PO BID #42 tablet 12/11/17 - Allergies Allergies/Adverse Reactions: Allergies Allergy/AdvReac Type Severity Reaction Status Date / Time amoxicillin [Amoxicillin] Allergy Unknown Verified 03/31/16 19:29 clavulanic acid Allergy Unknown Verified 03/31/16 19:29 lisinopril Allergy Unknown Verified 03/31/16 19:29 potassium Allergy Unknown Verified 03/31/16 19:29 procaine [Procaine] Allergy Unknown Verified 03/31/16 19:29 - Social History Does the pt smoke?: No Smoking Status: Never smoker Does the pt drink ETOH?: No Does the pt have substance abuse?: No - Immunizations Immunizations are current?: Yes - POLST Patient has POLST: Yes PD ED PE NORMAL - Vitals Vital signs reviewed: Yes - General General: No acute distress, Well developed/nourished. No: Alert and oriented X 3 (oriented to name. alert and conversant. ) - HEENT HEENT: Pharynx benign - Cardiac Cardiac: RRR, No murmur - Respiratory Respiratory: Clear bilaterally - Abdomen Abdomen: Soft, Non tender - Derm Derm: Normal color, Warm and dry - Extremities Extremities: Other (right lower leg and foot with swelling and warmth anteriorly , mild redness. No skin sores nor breakdown. Good color and cap refill in toes. ) Results - Vitals Vitals: Vital Signs - 24 hr 12/11/17 12/11/17 12/11/17 18:57 21:37 23:34 Temperature 36.6 C Heart Rate 53 L 71 61 Respiratory 16 18 16 Rate Blood Pressure 121/67 153/80 H 129/74 O2 Saturation 96 97 94 Oxygen O2 Source Room air - Labs Labs: Laboratory Tests 12/11/17 12/11/17 12/11/17 19:47 19:47 19:47 WBC 6.3 RBC 3.92 L Hgb 12.8 Hct 37.6 MCV 95.9 MCH 32.7 H MCHC 34.1 RDW 14.0 Plt Count 195 MPV 8.1 Neut # (Auto) 3.8 Lymph # (Auto) 1.7 [place] # (Auto) 0.6 Eos # (Auto) 0.2 Baso # (Auto) 0.1 Absolute Nucleated RBC 0.00 Nucleated RBC % 0.0 D-Dimer Sodium 138 Potassium 4.2 Chloride 103 Carbon Dioxide 30 Anion Gap 5.0 L BUN 14 Creatinine 0.7 Estimated GFR (MDRD) 80 L Glucose 109 H Lactic Acid 0.9 Calcium 8.8 Magnesium 2.0 Total Bilirubin 0.6 AST 16 ALT 10 Alkaline Phosphatase 86 Total Protein 6.7 Albumin 3.0 L Globulin 3.7 Albumin/Globulin Ratio 0.8 L Lipase 25 12/11/17 19:47 WBC RBC Hgb Hct MCV MCH MCHC RDW Plt Count MPV Neut # (Auto) Lymph # (Auto) [place] # (Auto) Eos # (Auto) Baso # (Auto) Absolute Nucleated RBC Nucleated RBC % D-Dimer > 1050.0 H Sodium Potassium Chloride Carbon Dioxide Anion Gap BUN Creatinine Estimated GFR (MDRD) Glucose Lactic Acid Calcium Magnesium Total Bilirubin AST ALT Alkaline Phosphatase Total Protein Albumin Globulin Albumin/Globulin Ratio Lipase - Rads (name of study) duplex U/S Radiology: Final report received (poor visualization due to patient habitus ( did not move legs well/stiff) and edema. No visualized clots, but not all veins seen. ) PD MEDICAL DECISION MAKING - ED course Complexity details: reviewed results, re-evaluated patient, considered differential (Her history and exam is concerning for DVT since she has bedbound and has new onset swelling of just the right leg. There are no skin sores and does not appear red enough to be consistent with infection or cellulitis. She does not have a fever and her white count is normal. Duplex ultrasound did not visualize all the veins. There are no clots seen but DVT could not be excluded. I then did a d-dimer blood test to correlate with suspicion and the d -dimer was quite elevated. At this point I have to assume a DVT pending better visualization or other testing. I talked with her daughter about it who is in agreement. We gave the patient dose of Xarelto to begin with. She clinically is good otherwise so can return to carriage which I am sure she would like better. Her daughter was agreeing with that. We will continue the Xarelto for now pending further decision from her primary care physician. Consider repeating ultrasound in a week or so with the swelling is down and the patient may be able to turn her leg better. Less likely would be a venous venogram.), d /w patient, d/w family - Sepsis Event Vital Signs: Vital Signs - 24 hr 12/11/17 12/11/17 12/11/17 18:57 21:37 23:34 Temperature 36.6 C Heart Rate 53 L 71 61 Respiratory 16 18 16 Rate Blood Pressure 121/67 153/80 H 129/74 O2 Saturation 96 97 94 Oxygen O2 Source Room air Departure - Departure Disposition: Home, Self Care Clinical Impression: Lower leg edema, Elevated d-dimer Condition: Stable Record reviewed to determine appropriate education?: Yes Instructions: ED DVT Follow-Up: Ankit Gonzalez MD [Primary Care Provider] - Prescriptions: Rivaroxaban [Xarelto] 15 mg PO BID #42 tablet Comments: The leg veins could not be completely visualized on ultrasound and her leg is swollen and clinically concerning for DVT and her blood test d-dimer is elevated consistent with that so I think we should treat as a blood clot in the leg for now. They might be able to repeat the ultrasound in a week if the swelling is down and make it better visualization. Defer to Dr. Gonzalez's judgment. Discharge Date/Time: 12/12/17 00:03
[2017-12-11 19:51] LABS: BASOPHILS # (AUTO) 0.1 10^3/uL (0.0-0.1); BASOPHILS % (AUTO) 1.2 %; EOSINOPHILS # (AUTO) 0.2 10^3/uL (0.0-0.7); EOSINOPHILS % (AUTO) 2.9 %; HGB - HEMOGLOBIN 12.8 g/dL (12.0-16.0); LYMPHOCYTES # (AUTO) 1.7 10^3/uL (1.5-3.5); LYMPHOCYTES % (AUTO) 26.3 %; MEAN CORPUSCULAR HEMOGLOBIN 32.7 pg (27.0-31.0); MEAN CORPUSCULAR HGB CONC 34.1 g/dL (32.0-36.0); MEAN CORPUSCULAR VOLUME 95.9 fL (81.0-99.0); MEAN PLATELET VOLUME 8.1 fL (7.9-10.8); MONOCYTES # (AUTO) 0.6 10^3/uL (0.0-1.0); MONOCYTES % (AUTO) 9.7 %; NEUTROPHILS # (AUTO) 3.8 10^3/uL (1.5-6.6); NEUTROPHILS % (AUTO) 59.9 %; PLT - PLATELET COUNT 195 10^3/uL (130-450); RED BLOOD COUNT 3.92 10^6/uL (4.20-5.40); WHITE BLOOD COUNT 6.3 x10^3/uL (4.8-10.8)
[2017-12-11 20:05] LABS: ALBUMIN/GLOBULIN RATIO 0.8 (1.0-2.2); BILIRUBIN,TOTAL 0.6 mg/dL (0.2-1.0); CALCIUM 8.8 mg/dL (8.5-10.3); CREATININE 0.7 mg/dL (0.4-1.0); TOTAL PROTEIN 6.7 g/dL (6.7-8.2)
--- NOTE | 2017-12-11 23:22 | Ultrasound Report ---
Procedure Date: 12/11/2017 Accession Number: [id number] / [id number] Procedure: US - Duplex Ext Veins Right CPT Code: FULL RESULT: EXAM: RIGHT LOWER EXTREMITY VENOUS ULTRASOUND EXAM DATE: 12/11/2017 09:14 PM. CLINICAL HISTORY: Leg swelling and warmth. COMPARISON: None. TECHNIQUE: Real-time sonographic vascular imaging was performed by the brick off bearer through the lower extremity utilizing both color-flow and Doppler spectral analysis. Multiple customer field representative static images were saved for review. FINDINGS: Common Femoral Vein (CFV): Normal. CFV-GSV Junction: Normal. Profunda Femoral Vein (PFV): Normal. Femoral Vein (FV) Prox: Normal. Femoral Vein (FV) Mid: Normal. Femoral Vein (FV) Dist: Normal. Popliteal Vein: Normal. Posterior Tibial Veins: Not seen. Peroneal Veins: Not seen. Contralateral Left CFV: Normal. Other: Patient was unable to tolerate compression and had limited mobility. Unable to apply significant compression. IMPRESSION: 1. Posterior tibial and peroneal veins are not seen. The remaining vessels were not well-seen due to suboptimal positioning, body habitus and inability to compress. Extensive soft tissue edema. 2. Given the significant limitations, no superficial or deep venous thrombosis seen. [facility]
[2017-12-11] MEDS ORDERED: RIVAROXABAN 15 MG TABLET PO STA (23:25)
[2017-12-11 23:34] VITALS: BP 129/74
== END 2017-12-12 00:03 | disposition home or self-care (01) ==
LOC: EDUNIT# → ED 18:57
DX: R60.0 Localized edema (principal); R79.1 Abnormal coagulation profile; F03.90 Unspecified dementia, unspecified severity, without behavioral disturbance, psychotic disturbance, mood disturbance, and anxiety; I10 Essential (primary) hypertension
CPT/HCPCS: 80053; 83605; 83690; 83735; 85025; 85379; 93971; 99283; A9270; 36415

== ENCOUNTER 2017-12-12 00:04 | Outpatient (CLI) | payer MEDICARE, OTHER | END 2017-12-12 00:05 | LOC: EMS 00:04 | PROVIDERS: ATTEND Surgery | DX: M79.89 Other specified soft tissue disorders (principal) | CPT/HCPCS: A0425; A0428 ==

== ENCOUNTER 2018-07-23 20:31 | Outpatient (CLI) | payer MEDICARE, OTHER ==
--- NOTE | 2018-07-23 20:47 | CONSULTATION NOTE ---
Palliative Care Follow Up - Referral Referring Provider: Dr. 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 Her primary care provider has asked palliative care to resume services, as patient has recurrent left buttock wound and declining cognitive and functional status. She presents with a large area 9 x 11 cm of firm palpable mass, with 7 x 7 area of redness and periwound erythema, moist area of 3.9 x 2.3 cm and in the center yellow slough of 2.3 x 1.5 cm. I am reviewing the wound with her caregivers and nurses, reports that angry redness has decreased since initiation of Bactrim. But does appear uncomfortable, and concern for ability to heal. Patient presents with increased left leg contracture, with resulting deep tissue injury of 1.5 x 3 cm dark purple area in the inside left ankle on malleoulus. Patient since last seen by palliative care, has had one ED visit, with concern for DVT. She was started on Xarelto this last September, though findings were inconclusive, was started based on clinical findings. Unfortunately related to the pain, patient has been bedbound over the weekend, though does appear with some discomfort with palpation staff feels she is more comfortable and will try and get her up for dinner tonight. Patient is sleeping more, less engaged in her environment. Unable to really answer yes or no questions, this is diminished since last evaluation. Patient has had a slow decline in weight, she currently is at 146.4, this is down from December 2017 from 165.4, 9 %, this is despite increase in med Pass to 90 mils 3 times daily, and initiation recently of pro-stat protein supplement of 30 mils twice daily for wound healing. She requires a Leonard lift for transfer to her wheelchair, patient with contractures needs new evaluation for padding of services and fit. She is still at times can self feed, though this is becoming less frequent and only if she is up in the dining room with cueing. Social History - Living Situation Living arrangement: [facility] Support System: Patient's daughter Sofia does visit her frequently from [place], her other daughter Jayna who lives in [place] does visit every few weeks.Significant changes in her cognitive status, less able to engage or recognize familiar persons. 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 Medications/Allergies - Medications Home Medications: Ambulatory Orders Medication Instructions Recorded Confirmed Acetaminophen [Tylenol] 650 mg PO Q6H PRN 12/15/16 07/24/18 Bisacodyl Supp [Dulcolax Supp] 1 supp [place] DAILY PRN MDD if no BM 12/15/16 07/24/18 after 2 days D-Mannose 1 pkt PO TID MDD 1 scoop 3 12/15/16 07/24/18 times/day Magnesium Hydroxide [Milk of 30 ml PO DAILY PRN MDD Give if no 12/15/16 07/24/18 Magnesia] BM after 2 days Senna [Senokot] 1 - 2 tab PO DAILY PRN MDD If no 12/15/16 07/24/18 BM after 2 days Acetaminophen 100 mg PO BID 03/02/17 07/24/18 Med Pass 90 ml PO TID 07/14/17 07/24/18 L.acid/L.casei/B.bif/B.ana/Fos 250 mg PO BID MDD 2 weeks 07/24/18 07/24/18 [Probiotic Blend Capsule] Nystatin 1 applic TOP BID 07/24/18 07/24/18 Rivaroxaban [Xarelto] 20 mg PO DAILY 07/24/18 07/24/18 Sulfamethox/Trimeth 800/160 1 tab PO BID MDD 07/18 for 10 days 07/24/18 07/24/18 [Bactrim Ds] guaiFENesin/DEXTROMETHORPHAN 5 ml PO Q4HR PRN 07/24/18 07/24/18 [Robitussin Dm] - Allergies Allergies/Adverse Reactions: Allergies Allergy/AdvReac Type Severity Reaction Status Date / Time amoxicillin [Amoxicillin] Allergy Unknown Verified 03/31/16 19:29 clavulanic acid Allergy Unknown Verified 03/31/16 19:29 lisinopril Allergy Unknown Verified 03/31/16 19:29 potassium Allergy Unknown Verified 03/31/16 19:29 procaine [Procaine] Allergy Unknown Verified 03/31/16 19:29 Review of Systems - Constitutional Constitutional: reports: Fatigue, Poor appetite, Weight loss. denies: Fever - Gastrointestinal Gastrointestinal: reports: Poor appetite - Genitourinary Genitourinary: reports: Incontinence - Musculoskeletal Musculoskeletal: reports: Stiffness, Limited range of motion, Muscle weakness, Transfer issues (leonard lift to wheelchair required) - Integumentary Integumentary: reports: Dryness, Other (recurrent wound left buttock) - Neurological Neurological: reports: Memory problems - Psychiatric Psychiatric: reports: Hallucinations - All Other Systems All Other Systems: reports: Other (limited ROS) Physical Exam - Vital Signs Temperature: 97.3 C Pulse Rate: 78 Respiratory Rate: 16 O2 Saturation: 93 (ra @ rest) - Physical Exam General Appearance: positive: Mild distress (with evaluation of wound; relaxed after) Eyes Bilateral: positive: Normal inspection ENT: positive: Dry mucous membranes Neck: positive: No JVD, Trachea midline Cardiovascular: positive: Irregularly irregular Respiratory: positive: No respiratory distress, Diminished in bases Abdomen: positive: Soft, Nml bowel sounds Skin: positive: Pallor, Pressure wound (combined abcess/pressure wound left buttock; pressure wound left inner ankle) Extremities: positive: No pedal edema Neurologic/Psychiatric: positive: Disoriented to person, Disoriented to place, Disoriented to time, Weakness, Unintelligible speech, Flat affect Palliative Care - POLST Patient has POLST: Yes POLST Status: DNR, Selective Treatment Pain: Pain worsening, Location (cries out with examination of wound; staff reports did poorly with pressure in w/c; wound appears better; would like to try patient up at least for meals) Drowsiness/Sedation: Moderate (4-6) - Palliative Care Discussion: ADDENDUM; 07/24 Spoke with Keira Baileyhilda her daughter and Gaudencio NELSON from [place], telephone #[phone]. She and her Sister Sofia Snell [phone] shared Gaudencio NELSON, she reports Sofia is recently been visiting and is aware of mother's decline. We did discuss in the context of goals moving forward what their wishes were for their mother. POLST currently with selective measures, Which does allow for hospitalization in transfer. We did discuss in the context of goals for their mom, is more of a comfort measure approach. We did discuss in updating the [facility] and clarify goals of care, more likely to avoid hospitalization. Keira shared, Her mother would "never want to be in this situation", and feels like she is deteriorating. We discussed as far as weighing benefits and burdens moving forward, how much or how little intervention to offer. Because of patient's cognitive and functional decline, and unknown outcome regarding wound and further expected sequela as a result of dementia, would like to explore if patient hospice eligible. If even if is not, palliative care would follow with the goal of comfort, and interventions based on quality of life. Would like though to have some clarity from the daughters, if they are at a place to make that transition if appropriate. Counseling provided regarding the hospice benefit, need for 6-month or less prognosis which would need a discussion with the hospice medical billing coder, as well as their goals for comfort and allowing natural . Daughter does feel they are at a decision point that might be congruent with approach, but will talk with Sofia, as well as come visit mother and let me know about her perception of mother's decline to further explore more concrete approach and goals. Impression and Recommendations - Palliative Care Impression: This is a 82-year-old woman who has advanced dementia, presenting with both cognitive and functional decline. Unfortunately she has recurrence of her left buttock wound, most likely etiology combined pressure and abscess. Palliative care to assist family and defining further goals of care, and transition to hospice when appropriate as well as provide support regarding quality of life issues Recommendations/Counseling Done: 1. Left buttock wound. This is multifactorial in origin, does appear to have underlying abscess, but pressure and positioning contributing to unstageable decub. Patient did have cellulitis, this appears to have responded well to the Bactrim. Patient was still discomfort and palpable swelling underneath, wound has been treated with many honey, consult regarding wound recommendations obtain, will look at some debriding. At this point in time will wait on Santyl, will use hydrogel with silver to wound to see if can lift edges of eschar and make progress. Order of PT evaluation for padding and fitting of wheelchair to decrease pressure points which are adding to wounds deterioration 2. Left ankle, inner malleolus DTI. This is exacerbated by her contracture, and bedbound status. Instructed staff to provide padding with Aleve life bandage, and evaluate for further deterioration. 3. Cellulitis of left buttock. This does appear to be improving, will add p robiotics Florastor 250 mg twice daily times 2 weeks per pharmacy recommendation. It without currently any systemic symptoms of infection. 4. Weight loss. Patient is being supported by med Pass and now postop. Patient eating less portions, most likely would have more rapid weight loss if not getting nutritional support. 5. Dementia with behavioral disturbances. Patient presents as a F AST 7D, Patient sometimes refuses medications, does cry out sometimes with Leonard transfers. Patient unable to really communicate her needs anymore, but is pleasantly conversant with word salad when spoken to. Staff and family noted patient has been sleeping more, and presents with more fatigue 6. Advanced care planning. Daughter did call me back next day, did explore goals of care, current perceptions of mother's decline, and wished to further update POLST if congruent with their wishes. Patient to transition to PCP Dr. Kennedi Herrmann, with [facility]. Time Spent: 45 minutes with greater than 50% of this done in counseling regarding follow-up with clinical staff for wound care, support needed, as well as coordination of care with PCP and follow-up with daughter.
== END 2018-07-23 20:32 | disposition home or self-care (01) ==
LOC: PC 20:31
PROVIDERS: ATTEND Nurse Practitioner Adult Health
DX: Z51.5 Encounter for palliative care (principal); L89.320 Pressure ulcer of left buttock, unstageable; L89.520 Pressure ulcer of left ankle, unstageable; L03.317 Cellulitis of buttock; R63.4 Abnormal weight loss; I69.319 Unspecified symptoms and signs involving cognitive functions following cerebral infarction; F01.51 Vascular dementia, unspecified severity, with behavioral disturbance; Z79.01 Long term (current) use of anticoagulants; Z74.01 Bed confinement status; Z66 Do not resuscitate
CPT/HCPCS: 99310

== ENCOUNTER 2018-07-30 10:45 | Outpatient (CLI) | payer MEDICARE, OTHER ==
--- NOTE | 2018-07-30 12:34 | CONSULTATION NOTE ---
Palliative Care Follow Up - Referral Referring Provider: Dr. Ankit Gonzalez/Dr. 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 Had resumed palliative care services last week, patient has been deteriorating both functionally and cognitively. She presented with a recurrent left buttock wound, with a large palpable mass originally of 9 x 11 cm, is down more into probably an 8 x 10 cm area, the redness and periwound continue but less intense. She does have a 3.5 x 1.5 area of slough, with adherent edges. They have continued the Medihoney as new product not available yet. She has just finished her Bactrim this weekend, does appear less red and angry, but obviously is still really quite painful when touched or pressure applied. It was covered by a dressing that was foam, there was a very small amount of exudate on it. Patient appears very uncomfortable with her contractures, the left side leg is toning fairly significantly. I did have a conversation with the physical therapist, who feels patient may have had a stroke since he was last seen her in the last few weeks as well with the toning. It is very painful for her to have her legs are padded, she had foam boots on that were causing her quite a bit of distress. She continues with a deep tissue injury on her inner left ankle, staff report is not opened. I received a call on Monday as they had tried to get patient up, patient has significant levels of pain and discomfort with her contractures, wound, and ongoing deterioration. She is also quite fearful and very difficult to reassure. She has been on scheduled acetaminophen 1000 mg twice daily, I did write for tramadol 50 mg 1 tab every 6 hours as needed for discomfort, unfortunately she only received it a couple times over the weekend. On exam she calls out, does appear to have high levels of pain and distress, will go ahead and schedule the tramadol 50 mg twice daily though this may need to be increased. She is opioid ximena. She has continued to only eat small amounts of pudding, sometimes refusing her med Pass and pills. On examinations patient's mouth bright red and irritated, with scattered white patches, most likely oral candidiasis is adding to her decrease in intake. She does appear somewhat dry, and has deteriorated over the weekend. I did touch base with her daughter Jayna, she reports she had seen her, did not recognize her daughter, nor did she want her usual cookie or pop. She did solomon back around see her again and she was sleeping and mostly unresponsive. She and her sister Sofia have talked, their goal is for her to transition to end of life comfortably, are open and willing to have her transition to hospice particularly if it will make this journey easier on her. We did update goals of care which is to focus on comfort, and to support a comfortable respectful . Social History - Living Situation Living arrangement: [facility] Support System: Patient has been a long-term resident over the last couple years at [facility]. She was of course much more functional and interactive when she originally was placed there. Her daughter Jayna lives in [place], comes up every several weeks, and her Sister Sofia visits from [place] every few months as well. They have seen significant deterioration over the last few weeks to months. Medications/Allergies - Medications Home Medications: Ambulatory Orders Medication Instructions Recorded Confirmed Acetaminophen [Tylenol] 650 mg PO Q6H PRN 12/15/16 07/30/18 Bisacodyl Supp [Dulcolax Supp] 1 supp [place] DAILY PRN MDD if no BM 12/15/16 07/30/18 after 2 days D-Mannose 1 pkt PO TID MDD 1 scoop 3 12/15/16 07/30/18 times/day Magnesium Hydroxide [Milk of 30 ml PO DAILY PRN MDD Give if no 12/15/16 07/30/18 Magnesia] BM after 2 days Senna [Senokot] 1 tab PO DAILY 12/15/16 07/30/18 Acetaminophen 1,000 mg PO BID 03/02/17 07/30/18 Med Pass 90 ml PO TID 07/14/17 07/30/18 L.acid/L.casei/B.bif/B.ana/Fos 250 mg PO BID MDD 2 weeks 07/24/18 07/30/18 [Probiotic Blend Capsule] Nystatin 1 applic TOP BID 07/24/18 07/30/18 guaiFENesin/DEXTROMETHORPHAN 5 ml PO Q4HR PRN 07/24/18 07/30/18 [Robitussin Dm] traMADol [Ultram] 50 mg PO BID 07/30/18 07/30/18 traMADol [Ultram] 50 mg PO Q4HR PRN MDD 300 mg 07/30/18 07/30/18 - Allergies Allergies/Adverse Reactions: Allergies Allergy/AdvReac Type Severity Reaction Status Date / Time amoxicillin [Amoxicillin] Allergy Unknown Verified 03/31/16 19:29 clavulanic acid Allergy Unknown Verified 03/31/16 19:29 lisinopril Allergy Unknown Verified 03/31/16 19:29 potassium Allergy Unknown Verified 03/31/16 19:29 procaine [Procaine] Allergy Unknown Verified 03/31/16 19:29 Review of Systems - Constitutional Constitutional: reports: Fatigue, Weakness, Poor appetite, Weight loss. denies: Fever, Chills - Ears, Nose & Throat Ears, Nose & Throat: reports: Dry mouth - Gastrointestinal Gastrointestinal: reports: Constipation (no bm since 07/24), Poor appetite - Genitourinary Genitourinary: reports: Incontinence - Musculoskeletal Musculoskeletal: reports: Muscle aches, Stiffness, Limited range of motion, Muscle weakness, Joint pain, Other (had trialed up in w/c unable secondary to pain and lethargy) - Integumentary Integumentary: reports: Other (wound on left ischium; left inner mallelous) - Neurological Neurological: reports: General weakness, Memory problems, Slurred speech - Psychiatric Psychiatric: reports: Anxiety, Delusions - Hematologic/Lymphatic Hematologic/Lymphatic: reports: Recurrent infections (treated for cellulitis bactrim; just finished) - All Other Systems All Other Systems: reports: Other (limited ROS related to dementia/system) Physical Exam - Vital Signs Temperature: 96.6 C Pulse Rate: 80 Respiratory Rate: 18 O2 Saturation: 95 (ra @ rest) - Physical Exam General Appearance: positive: Moderate distress Eyes Bilateral: positive: Other (appears to be looking "beyond" not focusing) ENT: positive: Pharyngeal erythema, Oral lesions (scattered white patches) Neck: positive: Stiff neck Cardiovascular: positive: Regular rate & rhythm Respiratory: positive: No respiratory distress, Diminished in bases. negative: Wheezes, Rales, Rhonchi Abdomen: positive: Soft Skin: positive: Pallor, Pressure wound (see HPI) Extremities: positive: No pedal edema Neurologic/Psychiatric: positive: Disoriented to person, Disoriented to place, Disoriented to time, Weakness, Flat affect, Other (easily distressed; word salad; calling out) Palliative Care - POLST Patient has POLST: Yes POLST Status: DNR, Comfort Measures (UPdated to COMFORT MEASURES with daughter on phone; current is DNAR; left to sign at Mon visit if present) Pain: Pain worsening, Location (Left leg and pressure area) Constipation: Yes, Unmanaged (no b/m 07/24) Feelings of wellbeing/Perceived Quality of Life: Poor, Worsening Performance Status: Patient previously to the most acute decline, was able to be Leonard lift into her tilt in space, was assisting some with feeding. With increasing pain and discomfort with pressure area, patient has been mostly bedbound. Patient has had more functional decline over the weekend, with just a few bites and swallows, does not help with bed mobility. Is curled up somewhat in a position. - Palliative Care Discussion: Follow-up with daughter Jayna from the facility, regarding patient's decline, symptoms and was seen. She had had a conversation with her sister care and the goal is to transition her to comfort measures, recognizing patient is most likely days to weeks if continues on this course. Their goal is for her to have a comfortable respectful . Minimal intervention other than for comfort measures. Discussed weighing benefits and burdens of medications, will stop Xarelto and will be scheduling pain medication. Follow-up with Dr. Barksdale will except on hospice care contact made for hospice admit for Monday opening. Daughter Jayna awaiting final confirmation and appointment time Impression and Recommendations - Palliative Care Impression: This is an 82-year-old woman who has advanced vascular dementia, presenting with both cognitive and functional decline. She acutely is declining, with decreased intake, decreased level of responsiveness, and increasing symptom bur den of pain and fatigue. She has had recurrence of her left buttock wound, has improved somewhat on the Bactrim, but remains most likely not going to heal. Patient also presents with symptoms of oral candidiasis. Palliative care clarify goals, transition to hospice is the plan. Recommendations/Counseling Done: 1. Left buttock wound. This is multifactorial in origin, does appear to have underlying abscess but pressure and positioning are contributing to an unstageable decub of the left buttock area. Cellulitis is improving, but still continues with significant pain. They have not obtained gel recommended for debriding, continue with Medihoney. Goal was to have hydrogel with silver to see if could lift the edges of eschar in progress. At this point in time goal will be to just manage wound to maximum level of comfort. Did follow-up with PT evaluation, had been looking for a Roho. Will examine for pressure points and recommendations, but at this point not planning to proceed. 2. Left ankle inner malleolus DTI. They are using foam dressing for protection, report no further deterioration. 3. Oral candidiasis. We will go ahead and treat with Diflucan 100 mg every other day for 3 doses. 4. Weight loss. Patient continues with decreased intake, less consistency with taking med Pass and protein supplement. Patient is taking only small bites of pudding. Suspect this is also being contributed to by her oral candidiasis. 5. Dementia with behavioral disturbances. Patient presents as a FAST7D. Patient intermittently refuses medications and intake, does seem quite distressed with increasing discomfort. Patient unable to communicate her needs. Patient presents with weight loss (9% 12/2017 to 06/2018), skin breakdown, recent infection of cellulitis, with the goals to focus on comfort will transition to hospice. 6. Acute on chronic pain. Patient crying out and seems quite distressed with significant discomfort. Is on acetaminophen 1000 mg twice daily, has only been given the tramadol a couple times over the weekend, today she presents quite painful. We will go ahead given that she is opiate ximena to initiate tramadol 50 mg twice daily, along with as needed breakthrough dosing every 4 hours up to 300 mg a day. May be appropriate to transition her to a fentanyl 12 mcg patch, if it is showing some improvement in pain relief or deterioration in her status for better pain control if no longer able to take oral meds. 7. Advanced care planning. Follow-up with staff do recognize patient's decline, call to Dr. Herrmann who is covering for now for Dr. Browning patient's, she is in agreement for transition plan to hospice. Follow-up with hospice medical education coordinator Dr. Barksdale to evaluate for hospice eligibility, report given. Goals of care conversation with daughter Jayna, had followed up from last week, she is in agreement for transition to hospice and focus on comfort. Follow-up with hospice opening on Monday, will transition to comfort measures. Time Spent: 60 minutes with greater than 50% of this and done in counseling with family, coordination of care with clinical staff and hospice team as well as providing medications and orders to address current level of discomfort and anticipatory guidance with daughter and staff
== END 2018-07-30 10:46 | disposition home or self-care (01) ==
LOC: PC 10:45
PROVIDERS: ATTEND Nurse Practitioner Adult Health
DX: Z51.5 Encounter for palliative care (principal); L89.320 Pressure ulcer of left buttock, unstageable; L03.317 Cellulitis of buttock; L89.520 Pressure ulcer of left ankle, unstageable; B37.0 Candidal stomatitis; R63.4 Abnormal weight loss; R62.7 Adult failure to thrive; I69.319 Unspecified symptoms and signs involving cognitive functions following cerebral infarction; F01.51 Vascular dementia, unspecified severity, with behavioral disturbance; G89.29 Other chronic pain; Z79.899 Other long term (current) drug therapy; Z79.891 Long term (current) use of opiate analgesic; Z66 Do not resuscitate; Z74.01 Bed confinement status
CPT/HCPCS: 99310